=== PATIENT | female | born 1975 | race Caucasian/White ===

== ENCOUNTER 2020-08-29 07:41 | Emergency (ER) | payer OTHER ==
[2020-08-29] MEDS ORDERED: CYCLOBENZAPRINE10 MG PO (08:41)
[2020-08-29] MEDS ORDERED: DICLOFENAC SODI75 MG PO (08:41)
== END 2020-08-29 08:48 | disposition home or self-care (01) ==
LOC: FER 07:41
DX: S39.012A Strain of muscle, fascia and tendon of lower back, initial encounter (principal); F17.210 Nicotine dependence, cigarettes, uncomplicated; X50.0XXA Overexertion from strenuous movement or load, initial encounter; Y92.007 Garden or yard of unspecified non-institutional (private) residence as the place of occurrence of the external cause
CPT/HCPCS: 96372; 99283; J1040; J1885